=== PATIENT | male | born 1940 | race Caucasian/White ===

== ENCOUNTER 2016-05-19 09:43 | Day surgery (SDC) | payer MEDICARE, BC ==
--- NOTE | ~2016-05-19 | EGD ---
EGD REPORT [facility] [address] [address] NAME: JUSTYN BRODY : 36 STATUS : REG [facility]#: [id number] AGE: 75 ADM/REG DATE : 05/19/16 MR#: [id number] REPORT SERV DATE: 05/19/16 DICTATED BY: GABBIE WIGGINS DATE: 05/19/16 REPORT STATUS : Draft TRANSCRIBED BY: [facility] DATE: 05/19/16 Endoscopy Center Patient Name: Justyn Brody Date of : 1940 Attending MD: GABBIE WIGGINS MD Procedure Date No Time: 05/19/2016 Procedure: Colonoscopy Indications: High risk colon cancer surveillance: Personal history of colonic polyps Referring MD: EMILY CALDERÓN Medicines: as per anesthesia Complications: No immediate complications. Procedure: Pre-Anesthesia Assessment: - ASA Grade Assessment: III - A patient with severe systemic disease. After I obtained informed consent, the scope was passed under direct vision. Throughout the procedure, the patient's blood pressure, pulse, and oxygen saturations were monitored continuously. The PCF [id number] was introduced through the anus and advanced to the cecum, identified by appendiceal orifice and ileocecal valve. The colonoscopy was performed without difficulty. The patient tolerated the procedure. The quality of the bowel preparation was fair. Findings: The perianal and digital rectal examinations were normal. There was evidence of a prior end-to-end colo-colonic anastomosis in the descending colon. This was patent. This was characterized by healthy appearing mucosa. This was traversed. A sessile polyp was found in the transverse colon. The polyp was 5 mm in size. The polyp was removed with a jumbo cold forceps. Resection and retrieval were complete. Many small and large-mouthed diverticula were found in the sigmoid colon, in the descending colon and in the transverse colon. Internal hemorrhoids were found during endoscopy and were mild. Impression: - Patent end-to-end colo-colonic anastomosis. - One 5 mm polyp in the transverse colon. Resected and retrieved. - Diverticulosis in the sigmoid colon, in the descending colon and in the transverse colon. - Internal hemorrhoids. Recommendation: - Await pathology results. EGD REPORT [address] [address] NAME: JUSTYN BRODY : 36 STATUS : REG [facility] PAT#: [id number] AGE: 75 ADM/REG DATE : 05/19/16 MR#: [id number] REPORT SERV DATE: 05/19/16 DICTATED BY: GABBIE WIGGINS. DATE: 05/19/16 REPORT STATUS : Draft TRANSCRIBED BY: [email or web address] DATE: 05/19/16 Procedure Code(s): --- Professional --- 88664, Colonoscopy, flexible, proximal to splenic flexure; with biopsy, single or multiple Diagnosis Code(s): --- Professional --- Z98.0, Intestinal bypass and anastomosis status D12.3, Benign neoplasm of transverse colon K64.8, Other hemorrhoids K57.30, Diverticulosis of large intestine without perforation or abscess without bleeding Z86.010, Personal history of colonic polyps CPT copyright 2013 [employer]. All rights reserved. The codes documented in this report are preliminary and upon building construction professor review may be revised to meet current compliance requirements. GABBIE WIGGINS MD 05/19/2016 11:31 AM This report has been signed electronically. Number of Addenda: 0 Note Initiated On: 05/19/2016 11:02 AM Scope Withdrawal Time 0 hours 14 minutes 8 seconds [id number] [id number]
[~2016-05-19 09:43] MED LIST: ASAB PO; ASAEC PO; ATEN100 PO; ATEN25 PO; ATEN50 PO; C1 PO; C25 PO; CADUET5 MG/10 MG PO; COREG25 PO; COUMADIN3 MG PO; COUMADIN4 MG PO; COZ50 PO; COZAAR100 MG PO; FERROUS SULF325 M1 PO; HALF81 PO; HYPOTEARS OPH S15 ML OP; HYZAAR 50/12.51 TAB PO; IMDUR30 PO; IMDUR60 PO; IRON325 MG PO; K-TABS10 MEQ PO; KDUR20 PO; L20 PO; L40 PO; LIPITOR10 PO; LORT7 PO; NORCO1 TA2 PO; NORV25 PO; P10 PO; P5 PO; PRILOSEC40 MG PO; RAN500 PO; RANEXA1000 MG PO; VITAMIN D OR; VITAMIN D400 UNI1 PO; Z100 PO; ZYDONE1 TA1 PO; [UNRECOGNIZED DRUG - OTHER] INH
[2016-05-19 10:19] LABS: INTERNATIONAL NORMAL RATI 1.4 UNITS (-)
[2016-07-13] MEDS ORDERED: NORV25 PO (08:22)
[2016-07-14] MEDS ORDERED: ULTRAM50 PO ×2 (15:59→16:00)
[2016-12-09] MEDS ORDERED: IMDUR60 PO (02:16)
[2016-12-09] MEDS ORDERED: HALF81 PO (02:16)
[2016-12-09] MEDS ORDERED: PRILOSEC40 MG PO (02:17)
[2016-12-09] MEDS ORDERED: L80 PO (02:17)
[2016-12-09] MEDS ORDERED: KDUR20 PO (02:17)
[2016-12-09] MEDS ORDERED: P5 PO (02:18)
[2016-12-09] MEDS ORDERED: RANEXA1000 MG PO (02:18)
[2016-12-09] MEDS ORDERED: COREG25 PO (02:19)
[2016-12-09] MEDS ORDERED: FERROUS SULF325 M1 PO (02:19)
[2016-12-09] MEDS ORDERED: MAGOX4 PO (02:19)
[2016-12-09] MEDS ORDERED: Z100 PO (02:20)
[2016-12-09] MEDS ORDERED: LIPITOR10 PO (02:20)
[2016-12-09] MEDS ORDERED: NORCO1 TA2 PO (02:22)
[2016-12-09] MEDS ORDERED: COUMADIN3 MG PO (02:23)
[2016-12-09] MEDS ORDERED: MIRAPEX125 PO (02:25)
[2016-12-09] MEDS ORDERED: NITROSTAT0.4 MG SL (02:27)
== END 2016-05-19 23:59 | disposition home or self-care (01) ==
LOC: DMU 09:43
PROVIDERS: Internal Medicine Gastroenterology
PROC: 0DBL8ZZ Excision of Transverse Colon, Via Natural or Artificial Opening Endoscopic (ICD-10-PCS; principal; 2016-05-19 10:30)
DX: Z12.11 Encounter for screening for malignant neoplasm of colon (principal); D12.3 Benign neoplasm of transverse colon; K57.30 Diverticulosis of large intestine without perforation or abscess without bleeding; K64.8 Other hemorrhoids; I25.10 Atherosclerotic heart disease of native coronary artery without angina pectoris; G47.33 Obstructive sleep apnea (adult) (pediatric); I10 Essential (primary) hypertension; E78.00 Pure hypercholesterolemia, unspecified; K21.9 Gastro-esophageal reflux disease without esophagitis; Z95.0 Presence of cardiac pacemaker; Z86.010 Personal history of colon polyps; Z98.0 Intestinal bypass and anastomosis status; Z88.1 Allergy status to other antibiotic agents
CPT/HCPCS: 85610; 88305; A9270-GY; J2270; J2370

== ENCOUNTER 2016-05-20 16:56 | Day surgery (SDC) | payer MEDICARE, BC ==
--- NOTE | ~2016-05-20 | OP ---
Record Of Operation [facility] [address] [place]. [address] NAME: JUSTYN BRODY : 36 STATUS : [facility]#: [id number] AGE: 75 ADM/REG DATE : 05/20/16 MR#: [id number] REPORT SERV DATE: 05/21/16 DICTATED BY: PHIL VERDUZCO JR. DATE: 05/20/16 REPORT STATUS : Draft TRANSCRIBED BY: [email or web address] DATE: 05/20/16 DATE OF PROCEDURE: 05/20/2016 SURGEON: Phil Verduzco M.D. PREOPERATIVE DIAGNOSIS: Infected sebaceous cyst of the penis with a penile abscess. PROCEDURE PERFORMED: Excision and drainage of penile sebaceous cyst and abscess. ANESTHESIA: General with an endotracheal tube. SPECIMENS: Infected sebaceous cyst of the penis. ESTIMATED BLOOD LOSS: 10 mL. INDICATION: Mr. Brody is a 75-year-old gentleman, who I saw in the office this afternoon with a large 4 cm sebaceous cyst with associated abscess of the frenulum of the penis. He has been having dysuria along with this and difficulties voiding. He comes for excision and drainage of the sebaceous cyst with abscess. PROCEDURE IN DETAIL: After the patient was identified and proper informed consent was obtained, he was taken to the operating room. General anesthesia was performed without complication. Using an endotracheal tube, he was then prepped and draped in a normal sterile fashion in the supine position. I made an incision along the ventral portion of the penile shaft just 3-4 mm proximal to the glans across the frenulum. Taking care not to open up the abscess, I used Metzenbaum scissors to dissect the skin away from the abscess and sebaceous cyst. I made an incision approximately half way around the circumference of the penis on each side and then brought my skin incision down around the area of skin that was adherent to the abscess and cyst to excise an elliptical-shape skin overlying the abscess cavity and cyst. I then dissected down to Stephen's fascia laterally and dissected along Stephen's fascia across the urethra with the catheter in place and excised the cyst in its entirety down to Stephen's fascia. Once the cyst had been entirely removed, I then irrigated the wound with sterile saline copiously. I inspected for hemostasis. As the patient is on Coumadin with the INR of 1.4, I inspected the urethra to make sure there were no perforations. The area overlying the urethra appeared healthy. I then closed the defect in two layers, one of 2-0 chromic suture and the subcutaneous tissues in interrupted fashion and then a 3-0 chromic layer and the skin in a running fashion. The Babb catheter was left in place. I placed a light pressure dressing of Vaseline gauze, 4 x 4's, and Coban wrap. The Babb catheter will be left in place until Monday along with the wrap. I will see him back for removal of Babb on Monday in the office. He was awakened in the operating room, transferred to the postanesthesia care unit in stable condition. [facility] [place] [address] [place]. [address] NAME: JUSTYN BRODY : 36 STATUS : [facility]#: [id number] AGE: 75 ADM/REG DATE : 05/20/16 MR#: [id number] REPORT SERV DATE: 05/21/16 DICTATED BY: PHIL VERDUZCO JR. DATE: 05/20/16 REPORT STATUS : Draft TRANSCRIBED BY: [facility] DATE: 05/20/16 Phil Verduzco Jr., M.D. / [id number] CC: Leann Peres Jr., M.D.
[2016-05-20 18:12] LABS: HEMATOCRIT 42.9 % (40.0-51.0); HEMOGLOBIN 14.7 g/dL (13.6-17.8)
[2016-05-20 18:23] LABS: BUN (BLOOD UREA NITROGEN) 16 MG/DL (6-23); CALCIUM, SERUM 8.6 MG/DL (8.5-10.4); CHLORIDE, SERUM 105 MMOL/L (96-112); CREATININE 1.23 MG/DL (0.70-1.30); GFR AFRICAN AMERICAN 65 ML/MIN (>=60); GFR NON AFRICAN AMERICAN 56 ML/MIN (>=60); GLUCOSE, SERUM 113 MG/DL (60-99); POTASSIUM, SERUM 3.8 MMOL/L (3.5-5.3); SODIUM, SERUM 143 MMOL/L (135-148)
[2016-05-20 18:25] LABS: CO2 (CARBON DIOXIDE) 27 MMOL/L (24-34)
[2016-05-20 18:30] LABS: INTERNATIONAL NORMAL RATI 1.4 UNITS (-); PROTIME (NOT ORD) 16.6 SEC (12.0-14.5)
[2016-07-13] MEDS ORDERED: NORV25 PO (08:22)
[2016-07-14] MEDS ORDERED: ULTRAM50 PO ×2 (15:59→16:00)
[2016-12-09] MEDS ORDERED: IMDUR60 PO (02:16)
[2016-12-09] MEDS ORDERED: HALF81 PO (02:16)
[2016-12-09] MEDS ORDERED: KDUR20 PO (02:17)
[2016-12-09] MEDS ORDERED: L80 PO (02:17)
[2016-12-09] MEDS ORDERED: PRILOSEC40 MG PO (02:17)
[2016-12-09] MEDS ORDERED: P5 PO (02:18)
[2016-12-09] MEDS ORDERED: RANEXA1000 MG PO (02:18)
[2016-12-09] MEDS ORDERED: MAGOX4 PO (02:19)
[2016-12-09] MEDS ORDERED: FERROUS SULF325 M1 PO (02:19)
[2016-12-09] MEDS ORDERED: COREG25 PO (02:19)
[2016-12-09] MEDS ORDERED: LIPITOR10 PO (02:20)
[2016-12-09] MEDS ORDERED: Z100 PO (02:20)
[2016-12-09] MEDS ORDERED: NORCO1 TA2 PO (02:22)
[2016-12-09] MEDS ORDERED: COUMADIN3 MG PO (02:23)
[2016-12-09] MEDS ORDERED: MIRAPEX125 PO (02:25)
[2016-12-09] MEDS ORDERED: NITROSTAT0.4 MG SL (02:27)
== END 2016-05-20 21:36 | disposition home or self-care (01) ==
LOC: SDC 16:56
PROVIDERS: Urology
PROC: 0H9AXZZ Drainage of Inguinal Skin, External Approach (ICD-10-PCS; principal; 2016-05-20 17:15)
DX: N48.89 Other specified disorders of penis (principal); I25.10 Atherosclerotic heart disease of native coronary artery without angina pectoris; G47.33 Obstructive sleep apnea (adult) (pediatric); E11.9 Type 2 diabetes mellitus without complications; M06.9 Rheumatoid arthritis, unspecified; Z95.5 Presence of coronary angioplasty implant and graft; Z88.1 Allergy status to other antibiotic agents; Z79.82 Long term (current) use of aspirin; Z79.01 Long term (current) use of anticoagulants; Z79.899 Other long term (current) drug therapy; Z79.52 Long term (current) use of systemic steroids
CPT/HCPCS: 80048; 85014; 85018; 85610; 88305; 93005; A9270-GY; J0330; J0694; J2250; J2270; J2405; J2710; J3010